=== PATIENT | male | born 1970 | race Caucasian/White ===

== ENCOUNTER → 2016-12-26 | Outpatient (CLI) | payer MEDICAID ==
--- NOTE | 2016-12-26 15:21 | KCIC ---
PROCEDURE MRI study of the lumbar spine without contrast HISTORY Lumbar radiculopathy. Chronic low back pain for years. Right hip pain. TECHNIQUE Noncontrast MRI sequences of the lumbar spine were performed in the sagittal and axial planes. COMPARISON July 01, 2015. FINDINGS No compression fracture or bone marrow edema or marrow infiltrative process or discitis is seen. There is some mild degenerative endplate marrow signal changes at L4-5 and L5-S1. There is increase in red marrow which was seen previously. The conus medullaris ends at the T12-L1 level and appears normal morphologically and is not compressed. There is mild diffuse disc bulging and mild degenerative endplate spurring at T11-T12 which is unchanged and does not compress the distal cord. At T12-L1 and L1-L2 and L2-L3, no focal disc protrusion or spinal canal stenosis or neural foraminal narrowing is seen. At L3-L4, mild degenerative endplate spurring and diffuse disc bulging is seen. However no spinal canal stenosis or neural foraminal narrowing is evident. At L4-5, moderate degenerative endplate spurring and mild diffuse disc bulging is seen. There is an increase in epidural fat at this level. This latter finding mildly narrows the thecal sac at this level. This is unchanged. No neural foraminal narrowing is seen. At L5-S1, mild retrolisthesis is seen. Moderate degenerative endplate spurring and mild diffuse disc bulging is seen which extends into the inferior aspect of the neural foramina bilaterally. There is mild narrowing of the neural foramina bilaterally. Broad-based prominent disc osteophyte complex is seen on the left side. However no displacement of the descending left S1 nerve root is seen. There is a small focal disc protrusion in the right paracentral region and this does not displace the descending right S1 nerve root. This does not extend into the opening of the right neural foramen. There is mild superior migration from the disc space. This is unchanged. Epidural lipomatosis is seen at this level which attenuates the thecal sac. This is unchanged. IMPRESSION Stable abnormalities of the lumbar spine at the L4-5 and L5-S1 levels from July 01, 2015. No progressive osseous spinal canal stenosis or new focal disc protrusion is seen. Electronically signed by: Jaun Angel MD (Dec 26, 2016 15:19:45)
== END | disposition home or self-care (01) ==
LOC: KCIC MRI 13:23
DX: M54.16 Radiculopathy, lumbar region (principal)
CPT/HCPCS: 72148